=== PATIENT | female | born 2000 | race Two or more races ===

== ENCOUNTER 2019-09-26 15:09 | Emergency (ER) | payer OTHER ==
[2019-09-26 16:26] LABS: MICROSCOPIC AUTO
[2019-09-26 16:31] LABS: CULTURE INDICATED? YES
[2019-09-26 17:15] LABS: ALANINE AMINOTRANSFERASE 16 U/L (12-78); ALBUMIN 4.2 g/dL (3.4-5.0); ANION GAP 7 mmol/L (5-15); CALCIUM 8.9 mg/dL (8.5-10.1); CHLORIDE 105 mmol/L (98-107); CREATININE 0.75 mg/dL (0.55-1.02)
[2019-09-26 17:31] LABS: MEAN CORPUSCULAR HEMOGLOBIN 29.7 pg (27.0-34.8); MEAN CORPUSCULAR HGB CONC 33.6 g/dL (32.4-35.8); MEAN CORPUSCULAR VOLUME 88.6 fL (80-100); MEAN PLATELET VOLUME 10.8 fL (7.4-10.4); PLATELET COUNT 174 x10^3/uL (130-400); RED BLOOD COUNT 4.91 x10^6/uL (3.82-5.3)
[2019-09-26 17:32] LABS: ALKALINE PHOSPHATASE 42 U/L (45-117); BILIRUBIN,TOTAL 0.5 mg/dL (0.2-1.0); TOTAL PROTEIN 8.1 g/dL (6.4-8.2)
[2019-09-26 18:00] LABS: <RBC MORPHOLOGY> NORMAL; BASOPHILS # (AUTO) 0.04 x10^3/uL (0-0.1); BASOPHILS % (AUTO) 1 % (0-1); EOSINOPHILS # (AUTO) 0.06 x10^3/uL (0-0.4); EOSINOPHILS % (AUTO) 1 % (1-7); LYMPHOCYTES # (AUTO) 2.05 x10^3/uL (1-3.4); LYMPHOCYTES % (AUTO) 24 % (22-44); MD MORPH REVIEW ONLY; MONOCYTES # (AUTO) 0.45 x10^3/uL (0.2-0.8); MONOCYTES % (AUTO) 5 % (2-9); NEUTROPHILS % (AUTO) 69 % (42-75)
[2019-09-26 18:01] LABS: <PLATELET ESTIMATE> ADEQUATE; <PLT MORPHOLOGY> NORMAL PLT MORPH
--- NOTE | 2019-09-26 18:05 | NUR ---
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
[2019-09-26 18:51] VITALS: BP 110/65
--- NOTE | 2019-09-26 18:52 | NUR ---
Provided bedside report to MARNI Hernandez. All questions answered. NADN. No needs expressed. Pt resting on gurney with warm blanket provided and call light within reach. Pt c/o n/v and unable to keep food or fluids down. Pt denies vaginal bleeding, cramping, or discharge at this time. No other needs expressed at this time.
--- NOTE | 2019-09-26 18:57 | NUR ---
REPORT FROM [facility]MA AT THIS TIME ASSUMED CARE OF PT
[2019-09-26] MEDS ORDERED: KETOROLAC 30 MG/1 ML ONE (20:29)
== END 2019-09-26 19:41 | disposition home or self-care (01) ==
LOC: ED 19:00
DX: O46.91 Antepartum hemorrhage, unspecified, first trimester (principal); O21.9 Vomiting of pregnancy, unspecified; Z3A.08 8 weeks gestation of pregnancy
CPT/HCPCS: 36415; 76801; 80053; 81001; 84702; 85025; 86901; 87086; 99284

== ENCOUNTER 2020-05-03 07:20 | Inpatient (IN) | payer OTHER ==
[~2020-05-03] VITALS: Ht 170.2 cm; Wt 88.2 kg
[2020-05-03 07:33] VITALS: BP 141/81
[2020-05-03] MEDS ORDERED: PREN1TAB60 PO (07:43)
[2020-05-03] MEDS ORDERED: OXYTOCIN 30U/ 0.9% NaCL 500ML 500 ML IV ONE (08:45)
[2020-05-03] MEDS ORDERED: FENTANYL PF 100 MCG/2ML ONE ×2 (08:52→09:55)
[2020-05-03] MEDS ORDERED: ONDANSETRON 2MG/ML, 2ML IVPush PRN (09:00)
[2020-05-03] MEDS ORDERED: TERBUTALINE 1 MG/ML, 1ML IVPush PRN (09:00)
[2020-05-03] MEDS ORDERED: FENTANYL PF 100 MCG/2ML IV PRN (09:00)
[2020-05-03] MEDS ORDERED: CALCIUM CARBONATE 500 MG TAB.CHEW PO PRN (09:00)
[2020-05-03] MEDS ORDERED: FENTANYL PF 100 MCG/2ML IVPush PRN (09:00)
[2020-05-03] MEDS ORDERED: TERBUTALINE 1 MG/ML, 1ML SQ PRN (09:00)
[2020-05-03] MEDS: LACTATED RINGERS 1,000 ML IVBOLUS PRN ×2 (09:07→09:50)
[2020-05-03 09:19] LABS: BASOPHILS # (AUTO) 0.02 x10^3/uL (0-0.1); BASOPHILS % (AUTO) 0 % (0-1); EOSINOPHILS # (AUTO) 0.06 x10^3/uL (0-0.4); EOSINOPHILS % (AUTO) 1 % (1-7); LYMPHOCYTES # (AUTO) 2.72 x10^3/uL (1-3.4); LYMPHOCYTES % (AUTO) 27 % (22-44); MD NO; MEAN CORPUSCULAR HEMOGLOBIN 28.6 pg (27.0-34.8); MEAN CORPUSCULAR HGB CONC 31.9 g/dL (32.4-35.8); MEAN PLATELET VOLUME 10.3 fL (7.4-10.4); MONOCYTES # (AUTO) 0.67 x10^3/uL (0.2-0.8); MONOCYTES % (AUTO) 7 % (2-9); NEUTROPHILS # (AUTO) 6.53 x10^3/uL (1.8-6.8); NEUTROPHILS % (AUTO) 65 % (42-75); PLATELET COUNT 184 x10^3/uL (130-400); RED BLOOD COUNT 4.23 x10^6/uL (3.82-5.3); RED CELL DISTRIBUTION WIDTH 15.3 % (9.6-15.2)
[2020-05-03] MEDS ORDERED: BUPIVACAINE 0.25% ONE (09:55)
[2020-05-03] MEDS ORDERED: FENTANYL/BUPIV./NS/PF 250 ML EPIDCONT ONE (09:55)
[2020-05-03] MEDS ORDERED: NEWBORN KIT ONE (10:37)
[2020-05-03] MEDS ORDERED: LIDOCAINE 1%, 20ML ONE (10:37)
[2020-05-03] MEDS ORDERED: OXYTOCIN 30U/ 0.9% NaCL 500ML 500 ML ONE ×2 (10:38→16:36)
[2020-05-03] MEDS ORDERED: MISOPROSTOL 200 MCG TABLET ONE (10:38)
[2020-05-03] MEDS ORDERED: FENTANYL/BUPIV./NS/PF 250 ML EPIDCONT SCH (10:52)
[2020-05-03] MEDS ORDERED: EPHEDRINE 50 MG/ML, 1ML IVPush PRN (11:00)
[2020-05-03] MEDS: LACTATED RINGERS 1,000 ML IV SCH ×2 (11:12→12:25)
[2020-05-03] MEDS ORDERED: LACTATED RINGERS 1,000 ML INTUTE PRN (12:00)
[2020-05-03] MEDS ORDERED: LACTATED RINGERS 1,000 ML INTUTE SCH (12:00)
[2020-05-03] MEDS ORDERED: CARBOPROST TROMETHAMINE 250 MCG/ML, 1ML IM PRN (16:00)
[2020-05-03] MEDS ORDERED: ONDANSETRON 2MG/ML, 2ML IV PRN (16:00)
[2020-05-03] MEDS ORDERED: OXYcodone IR 5MG TABLET PO PRN (16:00)
[2020-05-03] MEDS ORDERED: SIMETHICONE 80 MG CHEW TAB PO PRN (16:00)
[2020-05-03] MEDS ORDERED: MISOPROSTOL 200 MCG TABLET PO PRN (16:00)
[2020-05-03] MEDS ORDERED: IBUPROFEN 800 MG TABLET PO PRN (16:00)
[2020-05-03] MEDS ORDERED: ACETAMINOPHEN 325 MG TABLET PO PRN (16:00)
[2020-05-03] MEDS ORDERED: METOCLOPRAMIDE 5 MG/ML, 2ML IV PRN (16:00)
[2020-05-03] MEDS: OXYTOCIN 30U/ 0.9% NaCL 500ML 500 ML IV SCH (16:40)
[2020-05-03] MEDS ORDERED: IBUPROFEN 800 MG TABLET ONE (17:13)
[2020-05-03 18:20] VITALS: BP 107/73
[2020-05-03 20:00] VITALS: BP 114/79
[2020-05-04] VITALS: BP 112/68
[2020-05-04 00:14] LABS: BASOPHILS % (AUTO) 1 % (0-1); EOSINOPHILS # (AUTO) 0.04 x10^3/uL (0-0.4); EOSINOPHILS % (AUTO) 0 % (1-7); LYMPHOCYTES % (AUTO) 19 % (22-44); MD NO; MEAN CORPUSCULAR HEMOGLOBIN 29.3 pg (27.0-34.8); MEAN CORPUSCULAR HGB CONC 33.1 g/dL (32.4-35.8); MEAN PLATELET VOLUME 10.1 fL (7.4-10.4); MONOCYTES # (AUTO) 0.57 x10^3/uL (0.2-0.8); MONOCYTES % (AUTO) 5 % (2-9); NEUTROPHILS % (AUTO) 74 % (42-75); PLATELET COUNT 158 x10^3/uL (130-400); RED BLOOD COUNT 3.73 x10^6/uL (3.82-5.3); RED CELL DISTRIBUTION WIDTH 15.9 % (9.6-15.2)
[2020-05-04 00:20] VITALS: BP 106/67
[2020-05-04] MEDS: IBUPROFEN 600 MG TABLET PO PRN ×3 (00:27→17:53)
[2020-05-04] MEDS: OXYTOCIN 30U/ 0.9% NaCL 500ML 500 ML IV SCH (01:47)
[2020-05-04 04:00] VITALS: BP 112/68
[2020-05-04 07:30] VITALS: BP 109/76
[2020-05-04] MEDS: DOCUSATE 100 MG CAPSULE PO PRN ×2 (08:13→20:13)
[2020-05-04] MEDS: PRENATAL VIT/IRON/FA 1 EACH TABLET PO SCH (08:13)
[2020-05-04] MEDS: OXYcodone IR 5MG TABLET PO PRN ×2 (08:14→17:54)
[2020-05-04 12:10] VITALS: BP 108/66
[2020-05-04 19:00] VITALS: BP 110/76
[2020-05-05] MEDS: OXYcodone IR 5MG TABLET PO PRN ×3 (02:43→14:40)
[2020-05-05] MEDS: IBUPROFEN 600 MG TABLET PO PRN ×3 (02:43→14:40)
[2020-05-05 07:35] VITALS: BP 99/59
[2020-05-05] MEDS: DOCUSATE 100 MG CAPSULE PO PRN (08:04)
[2020-05-05] MEDS: PRENATAL VIT/IRON/FA 1 EACH TABLET PO SCH (08:04)
[2020-05-05] MEDS ORDERED: IBUP-1222 PO (09:18)
== END 2020-05-05 15:42 | disposition home or self-care (01) | DRG 807 ==
LOC: LDOP 07:20 → LDIP 08:53 → 2NW 17:56
PROVIDERS: ADMIT Student in an Organized Health Care Education/Training Program; ATTEND Student in an Organized Health Care Education/Training Program
PROC: 10E0XZZ Delivery of Products of Conception, External Approach (ICD-10-PCS; principal; 2020-05-03)
PROC: 3E0R3BZ Introduction of Anesthetic Agent into Spinal Canal, Percutaneous Approach (ICD-10-PCS; 2020-05-03)
PROC: 00HU33Z Insertion of Infusion Device into Spinal Canal, Percutaneous Approach (ICD-10-PCS; 2020-05-03)
PROC: 0HQ9XZZ Repair Perineum Skin, External Approach (ICD-10-PCS; 2020-05-03)
DX: O42.92 Full-term premature rupture of membranes, unspecified as to length of time between rupture and onset of labor (principal); Z37.0 Single live birth; Z3A.39 39 weeks gestation of pregnancy; O77.0 Labor and delivery complicated by meconium in amniotic fluid; Z91.040 Latex allergy status; Z91.013 Allergy to seafood; Z91.09 Other allergy status, other than to drugs and biological substances; Z83.3 Family history of diabetes mellitus; Z82.49 Family history of ischemic heart disease and other diseases of the circulatory system; O70.0 First degree perineal laceration during delivery; Z20.828 Contact with and (suspected) exposure to other viral communicable diseases
CPT/HCPCS: 36415; 85025; 86592; 86850; 86900; 87635; 89060; G0378; J3010; J2590; J7120; Q0114